=== PATIENT | female | born 1990 | race Caucasian/White ===

== ENCOUNTER 2018-06-29 15:43 | Outpatient (REF) | payer OTHER, SELFPAY ==
--- NOTE | 2018-06-29 14:00 | PAPFT_PTH ---
PATIENT: Kelli Gonzalez LOC: SO U#:[id number] AGE/SX: 27/F ROOM: RE06/29/[address]: Carolina Unger : 1990 BED: DIS: 06/29/2018 SPEC #: [id number] RECD: 06/29/18 17:58 STATUS: KENNEDY REBill #: [id number] LEXIE: 06/29/18 14:[address]: Carolina Unger DEPT: [facility] Cytology RECD BY: Sydney Brooks Tissues: 1 - CX/ENDOCX FOR PAP SMEARS Procedures: PAP THIN PREP/UVM Screening Comments: [id number]
== END 2018-06-29 16:03 ==
LOC: LBN 15:43
PROVIDERS: Visit Provider Obstetrics & Gynecology Gynecology
DX: Z12.4 Encounter for screening for malignant neoplasm of cervix (principal)
CPT/HCPCS: 88142

== ENCOUNTER 2018-07-12 14:39 | Outpatient (CLI) | payer OTHER, SELFPAY ==
[2018-07-12 16:11] LABS: TSH (W/Ref FT4) 1.14 uIU/mL (0.358-3.74)
[2018-07-14 09:58] LABS: DHEA Sulfate 363 ug/dl (96-512)
== END 2018-07-12 14:59 ==
PROVIDERS: Visit Provider Obstetrics & Gynecology Gynecology
DX: R63.5 Abnormal weight gain (principal); L68.0 Hirsutism
CPT/HCPCS: 36415; 82627; 84443

== ENCOUNTER 2019-09-26 20:52 | Outpatient (REF) | payer OTHER, SELFPAY ==
[2019-09-26 18:04] LABS: *AMPHETAMINES SCREEN URINE Negative (Negative); *BARBITURATES SCREEN URINE Negative (Negative); *BENZODIAZEPINES SCREEN URINE Negative (Negative); Cannabinoids THC Negative (Negative); Cocaine Screen,Urine Negative (Negative); METHADONE URINE SCREEN Negative (Negative); OPIATES URINE SCREEN Negative (Negative)
[2019-09-26 18:06] LABS: Tricyclic Antidepressants Negative (Negative)
[2019-09-30 09:35] LABS: Buprenorphine Negative; Norbuprenorphine Negative
== END 2019-09-26 21:12 ==
LOC: LBN 20:52
PROVIDERS: Visit Provider Advanced Practice Midwife
DX: Z34.91 Encounter for supervision of normal pregnancy, unspecified, first trimester (principal)
CPT/HCPCS: 80307; 87086

== ENCOUNTER 2019-10-13 08:57 | Outpatient (CLI) | payer OTHER, SELFPAY ==
[2019-10-13 09:25] LABS: Abs Immature Grans 0.03 k/cumm (0.0-0.09); Absolute Basophil Count 0.02 k/cumm (0.0-0.2); Absolute Eosinophil Count 0.08 k/cumm (0.0-0.7); Absolute Lymphocyte Count 1.77 k/cumm (1.2-3.4); Absolute Monocyte Count 0.63 k/cumm (0.11-0.7); Basophils % 0.2; Eosinophils % 0.7; HCT 37.5 % (36.0-46.0); HGB 12.9 g/dL (12.0-15.5); Immature Grans % 0.3 %; Lymphocytes % 15.2; Mean Corp. HGB Concentration 34.4 g/dL (32.0-36.0); Mean Corpuscular Hemoglobin 29.5 pg (27.0-33.0); Mean Corpuscular Volume 85.6 fL (80-95); Mean Platelet Volume 9.2 fL (8.0-11.0); Monocytes % 5.4; Neutrophils % 78.2; Platelet Count 276 x1000/uL (130-400); RBC 4.38 m/cumm (4.00-5.20); RBC Distribution Width 13.1 % (11.7-14.6); White Blood Cell Count 11.66 k/cumm (4.4-10.8)
[2019-10-13 09:26] LABS: Absolute Neutrophil Count 9.12 k/cumm (1.2-6.7)
[2019-10-14 09:59] LABS: Hepatitis B Surface Ag Negative (Negative)
[2019-10-14 10:03] LABS: Hepatitis C Ab w Rflx HCV PCR Negative (Negative)
[2019-10-14 10:10] LABS: HIV-1/2 Ag & Ab Screen Negative (Negative)
[2019-10-14 13:04] LABS: Rubella IgG Ab (UVM) Negative (See Note); Varicella IgG Antibody Positive (See Note)
[2019-10-14 15:12] LABS: Syphilis Total Ab w/Reflex Nonreactive (Nonreactive)
== END 2019-10-13 09:17 ==
PROVIDERS: Visit Provider Obstetrics & Gynecology Gynecology
DX: Z34.91 Encounter for supervision of normal pregnancy, unspecified, first trimester (principal); Z11.4 Encounter for screening for human immunodeficiency virus [HIV]; Z11.59 Encounter for screening for other viral diseases; Z01.84 Encounter for antibody response examination
CPT/HCPCS: 36415; 86787; 86803; 86850; 86900; 86901; 87340; 87389; 85025; 86762; 86780

== ENCOUNTER 2020-03-26 18:30 | Outpatient (REF) | payer OTHER, SELFPAY ==
[2020-03-26 18:27] LABS: *AMPHETAMINES SCREEN URINE Negative (Negative); *BARBITURATES SCREEN URINE Negative (Negative); *BENZODIAZEPINES SCREEN URINE Negative (Negative); Cannabinoids THC Negative (Negative); Cocaine Screen,Urine Negative (Negative); METHADONE URINE SCREEN Negative (Negative); OPIATES URINE SCREEN Negative (Negative)
[2020-03-26 18:34] LABS: Tricyclic Antidepressants Negative (Negative)
[2020-04-03 10:18] LABS: Buprenorphine Negative; Norbuprenorphine Negative
== END 2020-03-26 18:50 ==
LOC: LBN 18:30
PROVIDERS: Visit Provider Obstetrics & Gynecology
DX: Z34.93 Encounter for supervision of normal pregnancy, unspecified, third trimester (principal); Z36.85 Encounter for antenatal screening for Streptococcus B
CPT/HCPCS: 80307; 87081

== ENCOUNTER 2020-04-07 08:57 | Inpatient (IN) | payer OTHER, SELFPAY ==
[2020-04-07] MEDS: HYDROmorphone 2 MG/ML VIAL IVP (09:25)
--- NOTE | 2020-04-07 09:26 | W.PM.HP.N ---
Date of service: 04/07/20 Time of Service: 09:26 Assessment and Plan Assessment and plan (1) Active labor: Status: Acute Assessment and plan: Admit for managment of active labor. Will consult anesthesia for epidural. History of Present Illness History of Present Illness Chief Complaint: Active labor Narrative: 29 year old at 37.3 weeks presents in active labor with regular and painful contractions. She reports blood show at home but no leakage of fluid. On presentation cx was 7 cm in dilatation with intact membranes. Her course has been uncomplicated. Review of Systems All systems reviewed & are unremarkable except as noted in HPI and below PFSH Medical History (Updated 04/07/20 @ 09:31 by Bhupinder South MD) Abnormal uterine bleeding (AUB) (Acute) 1st day of flow excessively heavy. Constitutional hirsutism (Acute) Nl Testosterone and DHEAs. Fractured fibula (Acute) L. s/p ORIF. Positive test (Acute) JORGITO 04/25/20 by u/s 09/02/19. Family History (Updated 09/26/19 @ 14:54 by Tammy Lopez CNM) Maternal Grandmother Diabetes type 2 Father Hypertension Sister Down's syndrome half sister - same father Social History (Updated 07/26/18 @ 20:00 by Carolina Unger MD) Smoking/Tobacco Use Status: Never Second Hand Exposure: Yes Alcohol Intake: current Details: social Substance use type: does not use Adopted: No Foster care: No Household members: spouse current occupation: [employer], [employer] Seatbelt use: always Female Reproductive History Menstrual control method: none History History 1 Para Hx # Term Pregnancies Multiple births Hx # Pregnancies Ectopic pregnancies AB induced Hx Number of Living Children AB spontaneous Meds Home Medications and Allergies Home Medications Medication Instructions Recorded Confirmed Type prenat.vits,dc,uwo-fslp-bqaks 1 tab PO DAILY 09/02/19 04/06/20 History tetanus-diphtheria toxoids-Td 2 Lf 0.5 ml IM ONCE #0.5 ml 02/13/20 Clinic unit-2 Lf unit/0.5 mL IM suspension Allergies Allergy/AdvReac Type Severity Reaction Status Date / Time No Known Allergies Allergy Verified 04/06/20 15:53 Results Labs Result diagrams: 04/07/20 08:57 COVID-19 Screening Have you,or household,traveled outside [place] in last 14 days?: NO
[2020-04-07 09:44] LABS: HCT 35.7 % (36.0-46.0); HGB 11.8 g/dL (12.0-15.5); Mean Corp. HGB Concentration 33.1 g/dL (32.0-36.0); Mean Corpuscular Hemoglobin 28.1 pg (27.0-33.0); Mean Platelet Volume 9.3 fL (8.0-11.0); Platelet Count 343 x1000/uL (130-400); RBC Distribution Width 13.2 % (11.7-14.6)
[2020-04-07] MEDS: Methylergonovine 0.2 MG/ML VIAL IM (13:14)
[2020-04-07] MEDS: Acetaminophen 325 MG TAB 650 MG PO ×2 (13:54→19:36)
[2020-04-07] MEDS: Ibuprofen 600 MG TAB PO ×2 (13:55→19:35)
[2020-04-07] MEDS: Cyclobenzaprine 10 MG TAB PO (21:54)
[2020-04-08] MEDS: Cyclobenzaprine 10 MG TAB PO ×2 (05:49→15:09)
[2020-04-08] MEDS: Ibuprofen 600 MG TAB PO ×2 (08:15→16:57)
[2020-04-08] MEDS: Acetaminophen 325 MG TAB 650 MG PO ×2 (08:15→16:57)
[2020-04-08] MEDS: Docusate Sodium 100 MG CAP PO (08:15)
--- NOTE | 2020-04-08 08:28 | W.PM.PROGNOT ---
Date of Service Date of service: 04/08/20 Time of Service: 08:28 Assessment and Plan Assessment and plan (1) (normal spontaneous vaginal delivery): Status: Acute Assessment and plan: PPD 1 s/p - Continue routine care. Plan for discharge home tomorrow. Subjective Subjective Interval history since last seen: Doing well Minimal lochia today Ambulatory Objective Objective Clinical Data: Abnormal lab results 04/07/20 Range/Units 09:30 WBC 17.00 H (4.4-10.8) k/cumm Hgb 11.8 L (12.0-15.5) g/dL Hct 35.7 L (36.0-46.0) % Vital Signs Pain Level 3 04/08/20 08:15 Laboratory Results WBC 17.00 k/cumm (4.4-10.8) H 04/07/20 09:30 RBC 4.20 m/cumm (4.00-5.20) 04/07/20 09:30 Hgb 11.8 g/dL (12.0-15.5) L 04/07/20 09:30 Hct 35.7 % (36.0-46.0) L 04/07/20 09:30 MCV 85.0 fL (80-95) 04/07/20 09:30 MCH 28.1 pg (27.0-33.0) 04/07/20 09:30 MCHC 33.1 g/dL (32.0-36.0) 04/07/20 09:30 RDW 13.2 % (11.7-14.6) 04/07/20 09:30 Plt Count 343 x1000/uL (130-400) 04/07/20 09:30 MPV 9.3 fL (8.0-11.0) 04/07/20 09:30 Patient ABO/Rh O Positive 04/07/20 09:30 Antibody Screen Negative 04/07/20 09:30
[2020-04-09] MEDS: Ibuprofen 600 MG TAB PO ×2 (01:35→08:59)
[2020-04-09] MEDS: Acetaminophen 325 MG TAB 650 MG PO (05:39)
[2020-04-09] MEDS: Cyclobenzaprine 10 MG TAB PO ×2 (05:39→13:04)
[2020-04-09] MEDS: Docusate Sodium 100 MG CAP PO (09:00)
--- NOTE | 2020-04-09 09:50 | W.PM.PROGNOT ---
Date of Service Date of service: 04/09/20 Time of Service: 09:50 Assessment and Plan Assessment and plan (1) (normal spontaneous vaginal delivery): Status: Acute Assessment and plan: Will request anesthesia consult for possible spinal headache. Discussed that the mainstay of treatment will be caffeine and observation and that in most cases these will resolve spontaneously. Rarely a blood patch would be indicated. Once anesthesia eval is complete will consider discharge home. (2) Spinal headache: Status: Acute Subjective Subjective Interval history since last seen: The patient reports persistent neck pain since delivery which radiates to her her head when sitting or standing. She benefited somewhat from flexeril but is still uncomfortable. Otherwise she is doing well and desires discharge home today. Objective Objective Clinical Data: Vital Signs Pain Level 4 04/09/20 08:59 Laboratory Results WBC 17.00 k/cumm (4.4-10.8) H 04/07/20 09:30 RBC 4.20 m/cumm (4.00-5.20) 04/07/20 09:30 Hgb 11.8 g/dL (12.0-15.5) L 04/07/20 09:30 Hct 35.7 % (36.0-46.0) L 04/07/20 09:30 MCV 85.0 fL (80-95) 04/07/20 09:30 MCH 28.1 pg (27.0-33.0) 04/07/20 09:30 MCHC 33.1 g/dL (32.0-36.0) 04/07/20 09:30 RDW 13.2 % (11.7-14.6) 04/07/20 09:30 Plt Count 343 x1000/uL (130-400) 04/07/20 09:30 MPV 9.3 fL (8.0-11.0) 04/07/20 09:30 Patient ABO/Rh O Positive 04/07/20 09:30 Antibody Screen Negative 04/07/20 09:30
[2020-04-09] MEDS: Hamamelis Leaf/Glycerin 100 EACH BOX PR (13:04)
== END 2020-04-09 13:30 | disposition home or self-care (01) | DRG 807 ==
PROVIDERS: Admitting Provider Obstetrics & Gynecology; Visit Provider Obstetrics & Gynecology
DX: O70.1 Second degree perineal laceration during delivery (principal); Z37.0 Single live birth; Z3A.37 37 weeks gestation of pregnancy; O75.89 Other specified complications of labor and delivery; O89.4 Spinal and epidural anesthesia-induced headache during the puerperium; Z67.40 Type O blood, Rh positive
CPT/HCPCS: 36415; 85027; 86850; 86900; 86901; 99223; 99233; J2210

== ENCOUNTER 2021-08-23 15:48 | Outpatient (REF) | payer OTHER, SELFPAY ==
--- NOTE | 2021-08-23 14:45 | PAPFT_PTH ---
PATIENT: Kelli Gonzalez LOC: SO U#:[id number] AGE/SX: 30/F ROOM: RE08/23/[address]: Tammy Lopez : 1990 BED: DIS: 08/23/2021 SPEC #: [id number] RECD: 08/23/21 16:49 STATUS: KENNEDY REQ #: [id number] LEXIE: 08/23/21 14:[address]: Tammy Lopez DEPT: [facility] Cytology RECD BY: Sydney Brooks Tissues: 1 - CX/ENDOCX FOR PAP SMEARS Procedures: PAP THIN PREP/UVM Screening HPV DNA PROBE Comments: [id number]
[2021-08-26 18:39] LABS: Chlamydia Result Negative (Negative); GC Result Negative (Negative)
== END 2021-08-23 15:49 | disposition home or self-care (01) ==
LOC: LBN 15:48
PROVIDERS: Visit Provider Advanced Practice Midwife
DX: Z12.4 Encounter for screening for malignant neoplasm of cervix (principal); Z11.3 Encounter for screening for infections with a predominantly sexual mode of transmission
CPT/HCPCS: 87491; 87591; 88142; 87624

== ENCOUNTER 2021-08-23 18:39 | Outpatient (REF) | payer OTHER, SELFPAY ==
[2021-08-23 16:45] LABS: *AMPHETAMINES SCREEN URINE Negative (Negative); *BARBITURATES SCREEN URINE Negative (Negative); *BENZODIAZEPINES SCREEN URINE Negative (Negative); Cannabinoids THC Negative (Negative); Cocaine Screen,Urine Negative (Negative); METHADONE URINE SCREEN Negative (Negative); OPIATES URINE SCREEN Negative (Negative); Tricyclic Antidepressants Negative (Negative)
[2021-08-28 09:58] LABS: Buprenorphine Negative ng/mL (Cutoff: 5.0); Norbuprenorphine Negative ng/mL (Cutoff: 2.5)
== END 2021-08-23 18:40 | disposition home or self-care (01) ==
LOC: LBN 18:39
PROVIDERS: Visit Provider Advanced Practice Midwife
DX: Z34.91 Encounter for supervision of normal pregnancy, unspecified, first trimester (principal)
CPT/HCPCS: 80307; 87086

== ENCOUNTER 2021-09-19 11:49 | Outpatient (CLI) | payer OTHER, SELFPAY ==
[2021-09-20 15:27] LABS: Calculated age at EDD 31 years; Cigarette smoking status non-Smoker; GA used in risk estimate Scan estimate; INHIBIN 81 pg/mL; IVF Pregnancy No; Initial or repeat testing Initial testing; Insulin dependent diabetes No; Maternal Weight 144 lbs; Number of Fetuses 1; Physician Phone Number 802-748-7300; Prev Down(T21)/Trisomy Pregnan No; Prev Pregnancy w/NTD No; RECOMMENDED FOLLOW UP None.; Results Summary Normal risk; hCG, TOTAL 47.1 IU/mL; hCG, TOTAL MoM 1.35 MoM; uE3 1.27 ng/mL; uE3 MoM 1.27 MoM
== END 2021-09-19 11:50 | disposition home or self-care (01) ==
LOC: LBO 11:52
PROVIDERS: Visit Provider Advanced Practice Midwife
DX: Z34.92 Encounter for supervision of normal pregnancy, unspecified, second trimester (principal)
CPT/HCPCS: 36415; 81511

== ENCOUNTER 2022-02-05 17:51 | Outpatient (REF) | payer OTHER, SELFPAY ==
[2022-02-05 17:41] LABS: *AMPHETAMINES SCREEN URINE Negative (Negative); *BARBITURATES SCREEN URINE Negative (Negative); *BENZODIAZEPINES SCREEN URINE Negative (Negative); Cannabinoids THC Negative (Negative); Cocaine Screen,Urine Negative (Negative); METHADONE URINE SCREEN Negative (Negative); OPIATES URINE SCREEN Negative (Negative)
[2022-02-05 17:42] LABS: Tricyclic Antidepressants Negative (Negative)
[2022-02-14 15:11] LABS: Buprenorphine Negative ng/mL (Cutoff: 5.0); Norbuprenorphine Negative ng/mL (Cutoff: 2.5)
== END 2022-02-05 17:52 | disposition home or self-care (01) ==
LOC: LBN 17:51
PROVIDERS: Visit Provider Obstetrics & Gynecology
DX: Z34.93 Encounter for supervision of normal pregnancy, unspecified, third trimester (principal); Z36.85 Encounter for antenatal screening for Streptococcus B; Z3A.35 35 weeks gestation of pregnancy
CPT/HCPCS: 80307; 87081

== ENCOUNTER 2022-02-26 16:07 | Outpatient (CLI) | payer OTHER, SELFPAY ==
[2022-02-26 16:58] VITALS: BP 109/62; PULSE 77; TEMP 36.8
--- NOTE | 2022-02-26 18:34 | W.OBNST ---
Date of service: 02/26/22 Time of Service: 18:34 NST Evaluation Reason for NST Reasons for Nonstress Test: OTHER, SEE COMMENT (Cervical change in a multiparous patient) Gestational Age Gestational Age in Weeks and Days: 38 Weeks and 2Days Test and Monitor Explained Test/Monitor Explained: Test Explained, Monitor Explained and Patient Verbalized Understanding Vital Signs Blood Pressure: 109/62 Pulse: 77 Temperature: 98.2 F Urine Results Urine Protein: Negative Urine Ketones: Positive Urine Glucose: Negative Urine Blood: Positive NST Information Date on Monitor: 02/26/22 Time on Monitor: 16:10 Date off Monitor: 02/26/22 Time off Monitor: 15:05 Total Time on Monitor: -65 NST Interventions: PO Hydration Contraction Frequency: mild irreg NST Evaluation Patient States Movement: Present FHR Baseline: 135 Variability: Moderate 6-25 bpm Accelerations: 15x15 Decelerations: None NST Results: Reactive Note NST Note Note: Patient was evaluated on center after a [facility] and the patient found to be 5 cm dilated with the bag of water intact. While on the center she was noted to have mild contractions and a category 1 heart rate tracing. Patient was offered assisted rupture membranes which she declined. She would prefer to be at home with her children and hopefully go into labor spontaneously. She was given instructions as to when to call with contractions or rupture membranes. She has a follow-up appointment scheduled [facility] next week. NST Reviewed and Verified by: Carolina Unger
[2022-02-26 18:36] VITALS: BP 109/62; PULSE 77; TEMP 36.8
== END 2022-02-26 17:31 | disposition home or self-care (01) ==
LOC: BCD 16:10 → OBS 16:48
PROVIDERS: Visit Provider Obstetrics & Gynecology Gynecology
DX: O60.03 Preterm labor without delivery, third trimester (principal); Z3A.38 38 weeks gestation of pregnancy
CPT/HCPCS: 59025

== ENCOUNTER 2022-02-26 22:01 | Inpatient (IN) | payer OTHER, SELFPAY ==
[2022-02-26 23:46] VITALS: BP 127/65; PULSE 78; RESP 18; TEMP 36.6
[2022-02-27] VITALS (16 sets, daily range): BP systolic 93–135; BP diastolic 56–78; PULSE 71–104; RESP 17–18; TEMP 36.6–37.2; O2SAT 97–99; BMI 29.9
[2022-02-27 00:22] LABS: HCT 34.2 % (36.0-46.0); HGB 11.2 g/dL (11.2-15.7); MCH 27.9 pg (27.0-33.0); MCHC 32.7 % (32.0-36.0); MCV 85 fL (80-95); MPV 9.4 fL (8.0-11.0); Platelet Count 223 10^3/uL (130-400); RBC 4.02 10^6/uL (3.93-5.22); RDW 13.1 % (11.7-14.6); RDW-SD 40.2 fL; WBC 9.66 10^3/uL (4.4-10.8)
--- NOTE | 2022-02-27 00:28 | HPE_ITS ---
Date of service: 02/27/22 Time of Service: 00:28 Assessment and Plan Assessment and plan (1) Active labor at term: Status: Acute Assessment and plan: Patient comfortable. Declines epidural. Reports that with her previous experience the epidural did not work. She would prefer to labor without epidural analgesia. Anticipate vaginal delivery. OB-HPI Labor/Delivery History of Present Illness Reason for Visit: Term Labor Chief Complaint: Uterine Contractions. JORGITO Calculator Estimated Delivery Date Method Current WG Current Estimate 03/10/22 LMP (Certain) 38w 3d Other Estimates 03/08/22 Ultrasound #1 38w 5d History of Present Expected Delivery Route/Plan - MD PRINCE- Moisés Gonzalez (second baby together) Specific Issues/Plan 1. Heavy bleeding late post - records from [facility] showed mild uterine atony treated with methergine, TXA and cytotec. EBL 500 cc 2. Declines panorama - desires quad screen, quad normal 3. Patient and her partner are Covid vaccinated. They both had Covid, mid September,. Discussed surveillance -36wk growth sono: EFW 57% Narrative: Uncomplicated course. Patient seen earlier today at [facility] and vaginal exam at that time was 5 cm. She declined rupture membranes after NST on the center. Informed Consent Informed Consent: Other (Patient decided against a labor epidural ) Review of Systems Constitutional Comments: Contractions began to increase in frequency and intensity about 10 PM this evening. No rupture membranes no vaginal bleeding. Psychiatric Psychiatric: Reports system reviewed and no additional complaints, except as documented PFSH All Active Problems (Updated 02/27/22 @ 00:34 by Carolina Unger MD) Active labor at term (Acute) (Acute) Positive test (Acute) Medical History Abnormal uterine bleeding (AUB) 1st day of flow excessively heavy. Constitutional hirsutism Nl Testosterone and DHEAs. COVID-19 affecting in first trimester Fractured fibula L. s/p ORIF. Family History Maternal Grandmother Diabetes type 2 Father Hypertension Sister Down's syndrome half sister - same father Social History Smoking/Tobacco Use Status: Never Second Hand Exposure: Yes Smoking risk assessment performed?: Yes Alcohol Intake: current Details: social Drug use: Never Substance use type: does not use Adopted: No Foster care: No Household members: spouse current occupation: [email or web address], [employer] Seatbelt use: always Do you feel safe at home: Yes Do you feel safe in your relationship?: Yes Female Reproductive History Menstrual control method: none History History 2 Para Hx # Term Pregnancies 1 Multiple births Hx # Pregnancies Ectopic pregnancies AB induced Hx Number of Living Children 1 AB spontaneous Past Pregnancies Del. Date GA/Weeks # Outcome Route Wgt Sex Labor Lgth Anesthes ia Location Prov Complic 04/07/20 37 No Successful vaginal 6 lb 12 oz Female regional [facility] Delivery Date: 04/07/20 Last Updated by: Carolina Unger M.D. Heavy bleeding controlled with IM pitocin post . Epidural given in advanced labor, did not take effect before . Possible spinal headache post . Emberly. Meds Allergies and Home Medications Allergies Allergy/AdvReac Type Severity Reaction Status Date / Time No Known Allergies Allergy Verified 02/26/22 15:48 Home Medications Medication Instructions Recorded Confirmed Type prenat.vits,dc,xwm-uwno-sstxu 1 tab PO DAILY 09/02/19 02/26/22 History Exam Physical Exam Vital signs: Temp Pulse Resp BP 97.9 F 78 18 127/65 02/26/22 23:46 02/26/22 23:46 02/26/22 23:46 02/26/22 23:46 Vital Signs Reviewed: Yes Constitutional Constitutional: no acute distress Detailed Labor and Delivery Exam Dilation: 6 Effacement (%): 90 station: -1 Position: OA Cervix position: mid Consistency: soft Harris Score: Cervical Points Exam 0 1 2 3 Dilation Closed 1-2cm 3-4 cm 5-6cm Effacement 0-30% 40-50% 60-70% 80% Consistency Firm Medium Soft Station -3 -2 -1,0 +1,+2 Position Posterior Mid Anterior HARRIS Score(Cervical Ripeness Score): 9 Amniotic Membrane Status: Ruptured Rupture Method: Artifical Amniotic Fluid: Clear Monitor Mode: External Contraction Frequency(min): Q3-4 Contraction Duration(sec): 60 seconds Contraction Intensity: Mild Fetus A Heart Rate Baseline: 150 Monitor Accelerations: 15 X 15 Monitor Decelerations: None Variability: Moderate (6-25 BPM) Presentation: Vertex Categories: Category I Est. Weight: 7 lb 14.986 oz Date of Membrane Rupture: 02/27/22 Time of Membrane Rupture: 00:22 HEENT Exam HEENT Exam: Normal Neck Exam Neck Exam: Normal Chest/Brest/Axilla Exam Chest Exam: Not Done Breast Exam Breast Exam: Not Done Respiratory Exam Respiratory Exam: Normal Cardiovascular Exam Cardiovascular Exam: Normal Abdominal Exam Abdominal Exam: Normal Rectal Exam Rectal Exam: Not Done Exam Exam: Not Done Extremities Exam Extremities Exam: Normal Back/Spine/Pelvis Exam Back Exam: Normal Pelvis Adequate: Yes Skin Exam Skin Exam: Normal Neurological Exam Neurological Exam: Normal Psychiatric Exam Psychiatric Exam: Normal Results Results Group Beta Strep: Negative Blood Type: O+ Rubella Status: Immune Varicella Immunity: Immune Abnormal Lab Findings: Abnormal Labs 02/27/22 00:12 Hct 34.2 L Risk Assessment Risk for Shoulder Dystocia Historical/Initial OB: NEGATIVE FOR: Pelvic Abnormality, Pre- BMI>30, Previous Shoulder Dystocia or Previous Macrosomia 40 Weeks: POSTIVE FOR: EFW> 4500 gms; NEGATIVE FOR: Maternal Weight Gain >40lb or Post Dates Increased Risk?: No Risk for Pre-Eclampsia Daily Dose ASA Indicated: No Yes, if one or more: NEGATIVE FOR: Hx Pre-E/Gest HTN, Chronic HTN, Multiple Gestation, Pre-gestational DM, Renal Disease, Systemic Lupus or APA Syndrome Yes, if 2 or more: NEGATIVE FOR: Nulliparity, Age>= 35 yrs, >10yr btwn pregnancies, BMI>30, ethinicty, Mother/Sister w/ Pre-E or Previous IUGR Risk for Post- Hemorrhage Initial: NEGATIVE FOR: Multiple Gestation, Previous PPH, Known Clotting Deficiency, Grand Multiparity or Anticoagulation At Risk?: Yes Risks Reviewed Risks Reviewed Upon Admission: Yes
[2022-02-27 00:32] LABS: Source Nasal/Nares
[2022-02-27 01:27] LABS: COVID-19 PCR Negative (Negative)
[2022-02-27] MEDS: Oxytocin 10 UNITS/ML VIAL IM (02:30)
[2022-02-27] MEDS: Lidocaine 1% Multi-Dose 20 ML VIAL IJ (02:35)
[2022-02-27] MEDS: Acetaminophen 325 MG TAB 650 MG PO (03:23)
[2022-02-27] MEDS: Hamamelis Leaf/Glycerin 100 EACH BOX PR (03:24)
[2022-02-27] MEDS: Ibuprofen 600 MG TAB PO ×2 (03:24→19:44)
[2022-02-27] MEDS: Dibucaine 1% 28 GM TUBE (03:30)
[2022-02-27] MEDS: Oxytocin/Normal Saline 30 UNIT/500 ML BAG 95 UNITS IV (04:05)
[2022-02-27] MEDS: fentaNYL 100 MCG/2 ML VIAL 25 MCG IM (05:15)
--- NOTE | 2022-02-27 06:00 | OBPPV_ITS ---
Date of service: 02/27/22 Time of Service: 06:00 Assessment and Plan Assessment and plan (1) bleeding: Status: Acute Assessment and plan: Patient has received IV hydration IV Oxytocin with the standard protocol of infusion for uterine atony. Physical exam strongly correlates with a cervical laceration at the 6 o'clock position. Because of patient discomfort I am unable to repair it at the bedside. Patient is agreeable to a repair in the OR. Informed consent has been obtained to the OR has been notified. Informed consent obtained. Pt counseled of risk of infection, further bleeding from the repair site and need for D&C in the event bleeding is from uterine cavity. Total PP EBL 385cc. PP hemorrhage protocol not initiated at this time. (2) Spontaneous vaginal delivery: Status: Acute Assessment and plan: male infant over 2nd degree perineal laceration. 8lb9oz. 8/9 his parents intend to name him Noel Exam Physical Exam Vital signs: Temp Pulse Resp BP 98.1 F 78 18 102/56 L 02/27/22 03:41 02/27/22 05:59 02/27/22 03:41 02/27/22 05:59 Vital Signs Reviewed: Yes Narrative: I was called to evaluate patient after an uncomplicated spontaneous vaginal delivery at approximately 0228 this morning over second-degree perineal laceration. She received 10 units of IM Pitocin immediately after delivery of the infant. Placenta delivered intact with a normal configuration and had her uterus was firm 2 fingerbreadths below the umbilicus after the repair of second- degree laceration was performed. I received a call from nursing staff stating the patient's uterus was boggy and she was passing clots from the vagina. A IV drip of oxytocin was initiated. Despite the oxytocin infusion she continues to pass clots from the vagina. I was called to evaluate the patient Constitutional Constitutional: mild distress (Patient lying in bed uterus is tender to palpation but it remains 2 fingerbreadths below the umbilicus and firm) Respiratory Exam Respiratory Exam: Normal Fundal Exam Fundus: Below Umbilicus Exam Patient deferred: perineal exam (Normal. Second-degree perineal laceration repair site intact and hemostatic) External: Present normal urethra appearance Comments: Vaginal simental are intact without laceration. I was able to visualize the cervix and appears at the 6 o'clock position on the cervix a site of bleeding. Because of the patient's discomfort and the difficulty visualizing adequately the laceration I was unable to place a suture ligature. I recommended that the patient be brought to the operating room and receive sedation and or narcotic a nalgesia to assist with the repair. Extremities Exam Extremity Exam: Normal Back/Spine/Pelvis Exam Back Exam: Not Done Skin Exam Skin Exam: Normal Neurological Exam Neurological Exam: Normal Psychiatric Exam Psychiatric Exam: Normal (25 mcg of IV fentanyl were administered prior to attempted repair of cervical laceration) Results Hemoglobin/Hematocrit: Hgb 11.2 g/dL (11.2-15.7) 02/27/22 00:12 Hct 34.2 % (36.0-46.0) L 02/27/22 00:12 Abnormal Lab Findings: Abnormal Labs 02/27/22 00:12 Hct 34.2 L Additional Findings Results: Measured blood loss to be 370 cc since vaginal delivery and decision made to proceed to the OR Hemorrrhage Note Note Note: Over the course of 2 hours estimated blood loss 370 cc from the vagina. No excessive blood loss that would necessitate diagnosis of hemorrhage
--- NOTE | 2022-02-27 06:24 | NUR.NOTE ---
Nursing Note: 0500 RN and PRINCIPLE INDUSTRIAL HYGIENIST got patient up to bedside commode, patient then became hypo tensive 93/56 and complaining of chest tightness. Patient got back into bed, and MD was notified. 0505 MD at bedside assessing patient, vaginal sweep was done, unable to get good visual of cervical laceration without good pain control. 0515 25mcg of fentanal ordered and given with minimal affect. 0530 MD examining cerival laceration with speculum, patient still in lots of discomfort. 0600 MD decided to go to OR for better pain control and repair of cervical laceration.
--- NOTE | 2022-02-27 06:32 | W.ANESPRE ---
General Info Date of Service Date Performed: 02/27/22 Height: 5 ft 5 in Weight: 81.647 kg Body Mass Index (BMI): 29.9 Surgical Procedure: Operation Date: 02/27/22 06:40 Proposed Procedure Side Surgeon p Dilation & Curettage Carolina Unger MD Meds Allergies and Home Medications Allergies Allergy/AdvReac Type Severity Reaction Status Date / Time No Known Allergies Allergy Verified 02/26/22 15:48 Home Medication Medication Instructions Recorded prenat.vits,dc,jml-taxp-sclml 1 tab PO DAILY 09/02/19 Current Visit Medications: Current Medications Generic Name Dose Route Start Last Admin Trade Name Freq PRN Reason Stop Dose Admin Acetaminophen 650 mg 02/27/22 02:52 02/27/22 03:23 Acetaminophen 325 Mg Tab PO 650 mg Q4H PRN PRN Administration Docusate Sodium 100 mg 02/27/22 02:52 Docusate Sodium 100 Mg Cap PO BID PRN PRN Sodium Chloride 500 mls @ 0 mls/hr 02/27/22 02:52 Saline 500ml Bag IV PRN PRN As Directed Oxytocin/Sodium Chloride 30 unit in 500 mls @ 0 mls/hr 02/27/22 03:55 Pitocin/Normal Saline IV INFUSION [facility] Protocol Per Protocol IV Miscellaneous Supplies 1 each 02/27/22 03:00 Iv Access IV DIRECTED [facility] Ibuprofen 600 mg 02/27/22 02:52 02/27/22 03:24 Ibuprofen 600 Mg Tab PO 600 mg Q6H PRN PRN Administration Lidocaine HCl 0 ml 02/27/22 02:52 02/27/22 02:35 Lidocaine 1% Multi-Dose 20 Ml Vial IJ 15 ml DIRECTED PRN Administration Magnesium Hydroxide 30 ml 02/27/22 02:52 Milk Of Magnesia 30 Ml Cup PO HS PRN PRN Misoprostol 400 mcg 02/27/22 02:52 Misoprostol 200 Mcg Tab SL 02/28/22 02:53 PRN PRN Oxytocin 10 units 02/27/22 03:00 02/27/22 02:30 Oxytocin 10 Units/Ml Vial IM 02/27/23 02:59 10 units DIRECTED EZEKIEL Administration Multivitamins 1 tab 02/27/22 08:30 Multivitamin W/Ca,Fe Tab PO DAILY [facility] Sodium Chloride 0 ml 02/27/22 02:52 Normal Saline Flush 10 Ml Syr IVP PRN PRN [place]/Glycerin 0 each 02/27/22 02:52 02/27/22 03:24 [place]/Glycerin 100 Each Box MO 1 box PRN PRN Administration Discomfort PFSH Active Problems Active Problems: Problem Status Onset Code Spontaneous vaginal delivery O80 bleeding O72.1 Active labor at term Z34.90 Positive test Z32.01 Medical History Medical History Abnormal uterine bleeding (AUB) 1st day of flow excessively heavy. Constitutional hirsutism Nl Testosterone and DHEAs. COVID-19 affecting in first trimester Fractured fibula L. s/p ORIF. Tobacco Smoking/Tobacco Use Status: Never Second hand exposure: Yes Alcohol Alcohol Intake: current Details: social Substance Use Substance use: Never Substance use type: does not use Prental History History 2 Para Hx # Term Pregnancies 1 Multiple births Hx # Pregnancies Ectopic pregnancies AB induced Hx Number of Living Children 1 AB spontaneous Past Pregnancies Del. Date GA/Weeks # Outcome Route Wgt Sex Labor Lgth Anesthesia Location Prov Complic 04/07/20 37 No Successful vaginal 3061.748 g Female regional [facility] Delivery Date: 04/07/20 Last Updated by: Carolina Unger M.D. Heavy bleeding controlled with IM pitocin post . Epidural given in advanced labor, did not take effect before . Possible spinal headache post . Emberly. Vital Signs and Lab Results Vital Signs Most Recent Vital Signs in EMR: Most Recent Vital Signs Temp Pulse Resp BP 36.8 C 78 18 102/56 L 02/27/22 05:59 02/27/22 05:59 02/27/22 05:59 02/27/22 05:59 Lab Results Result Diagrams: 02/27/22 00:12 Blood Type / Crossmatch: Patient ABO/Rh O Positive 02/27/22 Antibody Screen NEGATIVE 02/27/22 Complete Blood Count: White Blood Count 9.66 10^3/uL (4.4-10.8) 02/27/22 00:12 Red Blood Count 4.02 10^6/uL (3.93-5.22) 02/27/22 00:12 Hemoglobin 11.2 g/dL (11.2-15.7) 02/27/22 00:12 Hematocrit 34.2 % (36.0-46.0) L 02/27/22 00:12 Platelet Count 223 10^3/uL (130-400) 02/27/22 00:12 Complete Metabolic Panel: No Data to Display Liver Function Panel: No Data to Display Coagulation Panel: No Data to Display Cardiac Panel: No Data to Display Arterial Blood Gas: No Data to Display Venous Blood Gas: No Data to Display Pancreas Panel: No Data to Display Thyroid Panel: No Data to Display Infectious Disease: Coronavirus (COVID-19)(PCR) Negative (Negative) 02/27/22 00:00 Coronavirus 2019 Source Nasal/Nares 02/27/22 00:00 Blood Cultures: No Data to Display Toxicology Panel: Urine Amphetamines Screen Negative (Negative) 02/05/22 13:25 Urine Benzodiazepines Screen Negative (Negative) 02/05/22 13:25 Urine Barbiturates Screen Negative (Negative) 02/05/22 13:25 Urine Cocaine Screen Negative (Negative) 02/05/22 13:25 Urine Methadone Screen Negative (Negative) 02/05/22 13:25 Urine Opiates Screen Negative (Negative) 02/05/22 13:25 Ur Tricyclic Antidepressants Screen Negative (Negative) 02/05/22 13:25 Ur Tetrahydrocannabinol (THC) Scrn Negative (Negative) 02/05/22 13:25 Panel: No Data to Display Anesthesia Assessment and Plan Anesthesia History Personal History: Other (PDPH) Family History: No Family History of Anesthesia Complications Exercise Tolerance Exercise Tolerance: Metabolic Equivalents>4 Cardiac & Pulmonary Exam Cardiac Exam: Normal S1/S2 Heart Sounds Pulmonary Exam: Clear Bilateral Breath Sounds Implantable Cardiac Device Does patient have a Pacemaker or an ICD?: No Airway Exam Known Difficult Airway: No Mallampati Class: 2 Mouth Opening: Normal (> 3cm) Thyromental Distance: Greater than 3 cm Neck Range of Motion: Full ROM Neck Circumference: Normal Teeth Condition: Normal Dentition ASA Classification ASA Score: ASA 2 Emergency Case?: Yes NPO Status NPO Status: Full Stomach Status Status: Not Relevant due to Medical History Anesthesia Plan Resuscitation Status: Full Code Anesthesia Technique: Spinal Anesthesia Airway Planned: Natural Airway Monitors Used: Standard Monitors Preoperative Comments:: 31 yo post with cervical tear to OR. Sig PMHx: denies, occ GERD with preg. Previous Anes: PDPH after an epidural attempt.
[2022-02-27] MEDS: Lactated Ringers 1,000 ML 30 ML IV (06:55)
--- NOTE | 2022-02-27 11:31 | W.PM.OP ---
Date of service: 02/27/22 Time of Service: 11:31 Operative Note Operative Note DATE OF PROCEDURE: 02/27/22 PRE-OP DIAGNOSIS: cervical laceration, POST-OP DIAGNOSIS: same PROCEDURE: repair of cervical laceration. SURGEON: Carolina Unger ASSISTING SURGEON: Mansi Macias Refer to Anesthesia Record ESTIMATED BLOOD LOSS: 370 PATHOLOGY: none sent COMPLICATIONS: None Patient was transported to: floor Patient's condition: stable Indications: [id number] female who had a spontaneous vaginal delivery on 02/27/2022 of a 8 lb 9 oz male over a second degree perineal laceration at that was repaired at the time of delivery. Over the course of 3 hours she continued to have a series of large clots that were not the result of uterine atony. Inspection of the cervix was performed at the bedside and a laceration at the 6 o'clock position was diagnosed. Findings: Cervix was intact except for a vertical laceration at the 6 o'clock position. No vaginal wall lacerations. Procedure Description: Patient was taken to the operating room where spinal anesthesia was administered without difficulty. She was placed in the dorsolithotomy position yellowfin stirrups prepped and draped in the usual sterile fashion. A bivalve speculum was placed in the vagina and the cervix was visualized grasped with a ring forcep and inspected circumferentially. No other sites of bleeding were present except for the 6 o'clock position. The vaginal simental were normal in appearance uterus was firm 2 fingerbreadths below the umbilicus. The secondary degree perineal laceration was hemostatic. Pt received 2gms of IV Ancef on arrival in the OR. Dr. Macias arrived in the OR and was available to assist with the case. I was able to place 3 interrupted imbricated sutures of 2-0 Monocryl from the 7o'clock position to the 4 o'clock position. There was satisfactory hemostasis after the sutures were placed. No active bleeding from internal os noted. Matthews speculum was removed and pt underwent a bladder catherization for 100cc of clear aye urine. Pt was transfered to a gurney and transported to Center. All sponge, needle and lap counts were correct x2.
--- NOTE | 2022-02-27 12:47 | W.ANESPOSTOP ---
Postoperative Evaluation Date, Time and Location Date Performed: 02/27/22 Time Performed: 08:00 Patient Location: Obstetrics Vital Signs Most Recent Imported Vital Signs: Most Recent Vital Signs Temp Pulse Resp BP Pulse Ox 37.2 C 72 17 100/59 L 97 02/27/22 11:00 02/27/22 11:00 02/27/22 11:00 02/27/22 11:00 02/27/22 11:00 Assessment Mental Status: Awake (Alert & Oriented to Patient Baseline) Airway and Respiratory Function: Patent airway with normal (patient baseline) respiratory exam Cardiovascular Function: Hemodynamically Stable Hydration Status: Adequately Hydrated Nausea & Vomiting: No Nausea or Vomiting Pain: Pain is tolerable per patient Peripheral Nerve Block: Patient did not receive a nerve block
--- NOTE | 2022-02-27 13:32 | W.OBDELIVERY ---
Date of service: 02/27/22 Time of Service: 13:33 OB Labor/ Delivery Information Baby A Delivery Delivery Method: Spontaneaous Presentation: Vertex Cephalic Position: Vertex Cord Description-Baby A: 3 Vessels and Clamped/Cut Amniotic Fluid: Clear Estimated Blood Loss: 150cc Delivery Outcome: Liveborn Complications: none Infant Transferred: Remains with Mother Providers Doctor: Carolina Unger Nurse: Aziza Duke Nurse: Jaki Ortiz Labor/Delivery Information Number of Babies in Womb: 1 Steroids Given: None Reason Steroids Not Administered: N/A Group Beta Strep: Negative Antibiotics Administered: No Rubella Status: Immune Blood Type: O+ Varicella Immunity: Immune Medication in Delivery: none Born En Route: No Maternal Complications: Other (Cervical laceration) Shoulder Dystocia: No Stages of Labor Onset of Labor Date: 02/26/22 Onset of Labor Time: 19:00 Complete Dilatation Date: 02/27/22 Complete Dilatation Time: 02:07 Labor - Stage 1 Duration: 24 hours and 0 minutes ROM Baby A: 02/27/22 ROM Baby A: 00:22 ROM Total Time- Baby A: [id number] Delivery Date-Baby A: 02/27/22 Infant Delivery Time-Baby A: 02:27 Labor Stage 2 Duration: 20 minutes Placenta Delivery Date-Baby A: 02/27/22 Placenta Delivery Time-Baby A: 02:32 Labor-Stage 3 Duration: 5 minutes Total Length of Labor-Baby A: 7 hours and 27 minutes Placenta Cultured: No Placenta Status: Delivered Placenta Status: Delivered Baby A Infant Gender: Male Gestational Status: Term (39-41.6 wks) Gestational Age in Weeks/Days: 38 Weeks and 3 Days weight: 8 lb 9 oz Score-1 Minute Interval(Baby A) Heart Rate-1 minute: 100 BPM or Greater Respiratory Effort- 1 minute: Spontaneous/Strong Cry Muscle Tone-1 minute: Minimal Flexion/Extension Reflex Response-1 minute: Prompt Response Color-1 minute: Bluish Hands or Feet Total Score-1 minute: 8 Score-5 Minute Interval(Baby A) Heart Rate- 5 minute: 100 BPM or Greater Respiratory Effort-5 minute: Spontaneous/Strong Cry Muscle Tone-5 minute: Active Movement Reflex Response-5 minute: Prompt Response Color-5 minute: Bluish Hands or Feet Total Score- 5 minute: 9 Procedure Procedures: Other (repair of 2nd degree laceration performed 2-0 Vicryl in usual fashion.)
--- NOTE | 2022-02-27 17:07 | W.PM.OBDISCH ---
Date of service: 02/27/22 Time of Service: 17:07 DS: Diagnosis Discharge Diagnosis (1) bleeding: Asessment and Plan: Cervical laceration at time of delivery that required repair in OR for patient comfort and improved visability. (2) Spontaneous vaginal delivery: Status: Acute Asessment and Plan: 02/27/22. Connie Sykes [id number] Discharge Plan Disposition Patient Disposition: HOME Condition: Improving Discharge Details Reason For Visit: Spontaneous Vaginal Delivery,Cervical Laceration Admit Date/Time: 02/26/22 22:01 Admit Provider: Carolina Unger Attending Provider: Carolina Unger Primary Care Provider: Unknown,Unknown Hospital Course Hospital Course: Patient was admitted late in the evening on 02/26/2022 in active labor. Tired presentation 6 cm dilated with an intact amniotic sac. She underwent AROM labor at without analgesia and had a spontaneous vaginal delivery over second-degree perineal laceration that was repaired at the time of delivery. course was complicated by bleeding from the cervix with approximately 370 cc of blood loss secondary to cervical laceration. She underwent a repair of cervical laceration with spinal anesthesia approximately 5 hours after delivery. Repair was uncomplicated. Bleeding was minimal at the time of discharge. Tolerating regular diet and NSAIDs for pain control. Plan is to have her [facility] for discussion regarding contraception and to assess mood and maternal bonding. Home Meds and New Rx's Prescriptions: Continued prenat.vits,dc,[id number] Tablet 1 tab PO DAILY Discharge Instructions Stand Alone Forms: BC Instructions, BC Post Vaginal Deliver Activity:: Activity as Tolerated Equipment/Supplies:: No Equipment Needed Diet:: As Tolerated Discharge Orders Discharge Orders: Discharge Order (Routine); Ordered 02/28/22 Ordered By: Deanna Lambert Discharge Data Discharge Date/Time-TO BE ENTERED AT DEPARTURE: 02/28/22 14:25 OB:DS Summary Summary Vaginal Delivery Method: Spontaneaous Laceration Extension: Second Degree [place] Infant Gender-Baby A: Male weight: 8 lb 9 oz Exam Physical Exam Vital signs: Temp Pulse Resp BP Pulse Ox 98.1 F 71 18 98/64 L 97 02/27/22 15:31 02/27/22 15:31 02/27/22 15:31 02/27/22 15:31 02/27/22 15:31 Vital Signs Reviewed: Yes PFSH All Active Problems (Updated 02/28/22 @ 12:27 by Deanna Lambert MD) Spontaneous vaginal delivery (Acute) Medical History (Updated 02/28/22 @ 12:27 by Deanna Lambert MD) Constitutional hirsutism Nl Testosterone and DHEAs. COVID-19 affecting in first trimester Fractured fibula L. s/p ORIF. bleeding Family History Maternal Grandmother Diabetes type 2 Father Hypertension Sister Down's syndrome half sister - same father Social History Smoking/Tobacco Use Status: Never Second Hand Exposure: Yes Smoking risk assessment performed?: Yes Alcohol Intake: current Details: social Drug use: Never Substance use type: does not use Adopted: No Foster care: No Household members: spouse current occupation: [employer] Seatbelt use: always Do you feel safe at home: Yes Do you feel safe in your relationship?: Yes Female Reproductive History Menstrual control method: none History History 2 Para Hx # Term Pregnancies 1 Multiple births Hx # Pregnancies Ectopic pregnancies AB induced Hx Number of Living Children 1 AB spontaneous Past Pregnancies Del. Date GA/Weeks # Preg Succ Route Wgt Sex Labor Lgth Anesthesia Location Prov [facility] 04/07/20 37 No vaginal 6 lb 12 oz Female regional [facility] Delivery Date: 04/07/20 Last Updated by: Carolina Unger M.D. Heavy bleeding controlled with IM pitocin post . Epidural given in advanced labor, did not take effect before . Possible spinal headache post . Emberly. DS: Data Vitals/I&O Vitals and I&O: Vital Signs Temperature 98.1 F 02/27/22 15:31 Pulse 71 02/27/22 15:31 Pulse Rhythm Regular 02/27/22 15:34 Respiratory Rate 18 02/27/22 15:31 Blood Pressure 98/64 L 02/27/22 15:31 Blood Pressure Mean 75 02/27/22 15:31 Pulse Oximetry 97 02/27/22 15:31 Pain Level 0 02/27/22 15:31 Intake & Output 02/26/22 02/27/22 02/27/22 23:59 11:59 23:59 Intake Total 210 / 210 Output Total 1870 / 2170 300 / 2170 Balance -1659 / -1959 - / -1959 Weight 180 lb 180 lb Intake: IV 210 / 210 Output: Urine 1050 / 1350 300 / 1350 Emesis 350 / 350 Blood 470 / 470 Other: Urine Color Yellow Yellow Bright Red Urine Appearance Clear Urine Odor None Comment yellow with any vaginal bleeding Voiding Methods Toilet Toilet Data Completed and Pending Labs on day of discharge: Labs from last 24 hours 02/27/22 02/27/22 02/27/22 00:12 00:12 00:00 WBC 9.66 RBC 4.02 Hgb 11.2 Hct 34.2 L MCV 85 MCH 27.9 MCHC 32.7 RDW 13.1 Plt Count 223 MPV 9.4 COVID-19 Source Nasal/Nares SARS-CoV-2 (PCR) Negative Patient ABO/Rh O Positive Antibody Screen NEGATIVE
[2022-02-28 08:00] VITALS: BP 106/69; PULSE 77; RESP 12; TEMP 36.7
[2022-02-28] MEDS: Ibuprofen 600 MG TAB PO (10:41)
[2022-02-28] MEDS: Docusate Sodium 100 MG CAP PO (10:43)
--- NOTE | 2022-02-28 12:25 | W.PM.OBPNV1 ---
Date of service: 02/28/22 Time of Service: 12:25 Assessment and Plan Assessment and plan (1) Spontaneous vaginal delivery: Status: Acute Assessment and plan: PPD#1 s/p NVD. Doing well. Out of bed. Moderate lochia. Cramping controlled on PO meds. Breast feeding going ok. Plan: routine post- care. Discussed discharge instructions and reasons to call including increasing bleeding or pain, fever of unknown reason, signs/sxms of DVT, signs/sxms of post- depression, difficulty or concerns with breast-feeding. Contraception and ability to get prior to first period even if exclusively breast-feeding discussed. Exam Physical Exam Vital signs: Temp Pulse Resp BP Pulse Ox 98.1 F 77 12 106/69 99 02/28/22 08:00 02/28/22 08:00 02/28/22 08:00 02/28/22 08:00 02/27/22 20:11 Vital Signs Reviewed: Yes Constitutional Constitutional: no acute distress and cooperative Detailed HEENT Exam Head: Present normocephalic and atraumatic Respiratory Exam Respiratory Exam: Normal Abdominal Exam Abdomen: Tender (mildly) Fundal Exam Fundus: Below Umbilicus and Firm Extremities Exam Extremity Exam: negative Calf Tenderness or Edema Detailed Neurological Exam Neurological: Present alert, oriented X3 and CN II-XII intact Results Hemoglobin/Hematocrit: Hgb 11.2 g/dL (11.2-15.7) 02/27/22 00:12 Hct 34.2 % (36.0-46.0) L 02/27/22 00:12 Abnormal Lab Findings: Abnormal Labs 02/27/22 00:12 Hct 34.2 L
--- NOTE | 2022-02-28 12:30 | W.PM.OBDISCH ---
Date of service: 02/28/22 Time of Service: 12:31 DS: Diagnosis Discharge Diagnosis (1) Spontaneous vaginal delivery: Status: Acute Asessment and Plan: Bleeding resolved s/p repair of cervical laceration. Routine pp care and d/c to home s/p circumcision of . Discharge Plan Disposition Patient Disposition: HOME Condition: Improving Discharge Details Reason For Visit: Spontaneous Vaginal Delivery,Cervical Laceration Admit Date/Time: 02/26/22 22:01 Admit Provider: Carolina Unger Attending Provider: Carolina Unger Primary Care Provider: Unknown,Unknown Hospital Course Hospital Course: Patient was admitted late in the evening on 02/26/2022 in active labor. Tired presentation 6 cm dilated with an intact amniotic sac. She underwent AROM labor at without analgesia and had a spontaneous vaginal delivery over second-degree perineal laceration that was repaired at the time of delivery. course was complicated by bleeding from the cervix with approximately 370 cc of blood loss secondary to cervical laceration. She underwent a repair of cervical laceration with spinal anesthesia approximately 5 hours after delivery. Repair was uncomplicated. Bleeding was minimal at the time of discharge. Tolerating regular diet and NSAIDs for pain control. Plan is to have her follow-up [facility] 2 [facility] for discussion regarding contraception and to assess mood and maternal bonding. Home Meds and New Rx's Prescriptions: New acetaminophen 325 mg Tablet 650 mg PO Q4H PRN PRNQty: 0 0RF docusate sodium [Colace] 100 mg Capsule 100 mg PO BID PRN PRNQty: 0 0RF ibuprofen 600 mg Tablet 600 mg PO Q6H PRN PRNQty: 30 0RF Medi-Pads 50 % Pads, Medicated 1 pad DC PRN PRN (Reason: Discomfort) Qty: 0 0RF Continued prenat.vits,dc,[id number] Tablet 1 tab PO DAILY Discharge Instructions Stand Alone Forms: BC Instructions, BC Post Vaginal Deliver Activity:: Activity as Tolerated Equipment/Supplies:: No Equipment Needed Diet:: As Tolerated Discharge Orders Discharge Orders: Discharge Order (Routine); Ordered 02/28/22 Ordered By: Denana Lambert OB:DS Summary Summary Vaginal Delivery Method: Spontaneaous Laceration Extension: Second Degree Contraception Discussed Contraception Discussed: Yes Contraceptive Plan: Not planning to use, Gender-Baby A: Male weight: 8 lb 9 oz Status at Discharge Functional status at discharge: independent ambulation Overall status at discharge: patient is back to baseline Mental Status: mental status grossly normal Speech and Movement: speech and movement normal Mood: congruent mood Affect: normal affect Exam Physical Exam Vital signs: Temp Pulse Resp BP Pulse Ox 98.1 F 77 12 106/69 99 02/28/22 08:00 02/28/22 08:00 02/28/22 08:00 02/28/22 08:00 02/27/22 20:11 PFSH All Active Problems (Updated 02/28/22 @ 12:27 by Deanna Lambert MD) Spontaneous vaginal delivery (Acute) Medical History (Updated 02/28/22 @ 12:27 by Deanna Lambert MD) Constitutional hirsutism Nl Testosterone and DHEAs. COVID-19 affecting in first trimester Fractured fibula L. s/p ORIF. bleeding Family History Maternal Grandmother Diabetes type 2 Father Hypertension Sister Down's syndrome half sister - same father Social History Smoking/Tobacco Use Status: Never Second Hand Exposure: Yes Smoking risk assessment performed?: Yes Alcohol Intake: current Details: social Drug use: Never Substance use type: does not use Adopted: No Foster care: No Household members: spouse current occupation: [employer] Seatbelt use: always Do you feel safe at home: Yes Do you feel safe in your relationship?: Yes Female Reproductive History Menstrual control method: none History History 2 Para Hx # Term Pregnancies 1 Multiple births Hx # Pregnancies Ectopic pregnancies AB induced Hx Number of Living Children 1 AB spontaneous Past Pregnancies Del. Date GA/Weeks # Outcome Route Wgt Sex Labor Lgth Anesthesia Location Prov Complic 04/07/20 37 No Successful vaginal 6 lb 12 oz Female regional [facility] Delivery Date: 04/07/20 Last Updated by: Carolina Unger M.D. Heavy bleeding controlled with IM pitocin post . Epidural given in advanced labor, did not take effect before . Possible spinal headache post . Emberly. DS: Data Vitals/I&O Vitals and I&O: Vital Signs Temperature 98.1 F 02/28/22 08:00 Pulse 77 02/28/22 08:00 Pulse Rhythm Regular 02/28/22 08:00 Respiratory Rate 12 02/28/22 08:00 Blood Pressure 106/69 02/28/22 08:00 Blood Pressure Mean 81 02/28/22 08:00 Pulse Oximetry 99 02/27/22 20:11 Pain Level 3 02/28/22 10:41 Comment 02/27/22 20:11 Intake & Output 02/27/22 02/28/22 02/28/22 23:59 11:59 23:59 Output Total 300 / 2170 Balance -300 / -1960 Output: Urine 300 / 1350 Other: Urine Color Yellow Urine Appearance Clear Voiding Methods Toilet
== END 2022-02-28 14:25 | disposition home or self-care (01) | DRG 768 ==
PROVIDERS: Admitting Provider Obstetrics & Gynecology Gynecology; Visit Provider Obstetrics & Gynecology Gynecology
PROC: 10E0XZZ Delivery of Products of Conception, External Approach (ICD-10-PCS; CPT 57720; principal; 2022-02-27 06:30)
DX: O71.3 Obstetric laceration of cervix (principal); Z37.0 Single live birth; O72.1 Other immediate postpartum hemorrhage; O70.1 Second degree perineal laceration during delivery; Z3A.38 38 weeks gestation of pregnancy
CPT/HCPCS: 57720; 36415; 85027; 86850; 86900; 86901; 87635; J0690; J2405; J2590; J3010; J3490

== ENCOUNTER 2025-03-07 09:28 | Outpatient (REF) | payer OTHER, SELFPAY | END 2025-03-07 09:29 | disposition home or self-care (01) | LOC: LBN 09:28 | PROVIDERS: PCP Physician Assistant; Visit Provider Obstetrics & Gynecology | DX: Z12.4 Encounter for screening for malignant neoplasm of cervix (principal) | CPT/HCPCS: 88142; 87624 ==